=== PATIENT | female | born 1965 | race Caucasian/White ===

== ENCOUNTER 2016-03-08 09:41 | Emergency (ER) | payer OTHER ==
[~2016-03-08] VITALS: Ht 175.3 cm; Wt 80.9 kg
[~2016-03-08 09:41] MED LIST: ATEN50TA8 PO; FENO145T26 PO; LCTX PO
[2016-03-08 09:43] VITALS: TEMP 36.4; Ht 175.3 cm; Wt 80.9 kg
[2016-03-08] MEDS ORDERED: ONDANSETRON INJ 2 MG/ML 2 ML VIAL IV STA ×2 (09:48→11:42)
[2016-03-08] MEDS ORDERED: SITA100T3 PO (10:03)
[2016-03-08] MEDS ORDERED: GABA-113 PO (10:03)
[2016-03-08] MEDS ORDERED: BIOT1CAP3 PO (10:03)
[2016-03-08] MEDS ORDERED: LOSA1TAB PO (10:03)
[2016-03-08] MEDS ORDERED: DIPH-296 PO (10:03)
[2016-03-08] MEDS ORDERED: ASPI81TA28 PO (10:03)
[2016-03-08] MEDS ORDERED: FENO200C6 PO (10:03)
[2016-03-08 10:21] LABS: BASO % 0.1 %; BASO ABS # 0.01 K/uL (0-0.2); COMPLETE YES; EOS % 0.4 %; IG% 0.2 %; LYMPH % 6.5 %; MEAN PLATELET VOLUME 11.7 fL (7.4-10.4); MONO % 3.5 %; NEUT % 89.3 %; PLATELET COUNT 283 K/uL (130-400); RED BLOOD COUNT 5.23 M/uL (4.2-5.4); WHITE BLOOD COUNT 13.88 K/uL (4.8-10.8)
[2016-03-08 10:28] LABS: URINE APPEARANCE CLEAR (CLEAR); URINE BILIRUBIN NEG (NEG); URINE COLOR DK YELLOW; URINE EPITHELIAL CELL AUTO >30 /lpf (0-5); URINE NITRITE NEG (NEG); URINE PH 6.5 (4.5-7.5); URINE SPECIFIC GRAVITY 1.021 (1.000-1.030); UROBILINOGEN NEG (NEG); ZZUR CULT IF INDIC CLEAN CATCH YES
[2016-03-08 10:32] LABS: MANUAL MICROSCOPIC REQUIRED? NO; REVIEW REQ? YES
[2016-03-08 10:36] LABS: BUN/CREATININE RATIO 17.6 (10-20); CALCIUM 9.8 mg/dl (8.5-10.1); CREATININE 0.96 mg/dl (0.60-1.20); POTASSIUM 3.9 mmol/L (3.5-5.1)
[2016-03-08 10:39] LABS: ALB/GLOB RATIO 1.3 (0.9-2)
[2016-03-08 10:41] LABS: URINE MUCUS PRESENT (NONE PRSENT)
[2016-03-08] MEDS ORDERED: SODIUM CHLORIDE 0.9% 1000ML 1,000 ML IV ONE (10:45)
[2016-03-08] MEDS ORDERED: MoRPHine SULFATE 4 MG/ML 1 ML CARP\\VIAL IV ONE (10:45)
[2016-03-08] MEDS ORDERED: OPTIRAY 320 IV PRN (11:15)
[2016-03-08] MEDS ORDERED: HYDROmorphone INJ 1 MG/ML SYR IV STA (11:42)
--- NOTE | 2016-03-08 14:21 | DIAGNOSTIC IMAGING REPORT ---
CT ABD/PELVIS IV AND ORAL CONT CLINICAL HISTORY: Nausea, vomiting, left-sided abdominal pain COMPARISON STUDY: August 2010 TECHNIQUE: Following the IV administration of 119 mL of Optiray-320, CT scan of the abdomen and pelvis was performed from the lung bases to the proximal femurs. Images are reviewed in the axial, sagittal, and coronal planes. IV contrast was administered without complication. CT DOSE: 817.92 mGycm FINDINGS: Lower chest: There are bibasal atelectatic changes. Liver: There is mild hepatic steatosis. No gallbladder abnormalities are visualized. Gallbladder: Unremarkable. Spleen: The spleen is top normal in size measuring 11 cm. Pancreas: Unremarkable. Adrenal glands: Unremarkable. Kidneys: There is a 3 mm nonobstructing upper pole right renal calculus. There is a 5 mm nonobstructing mid pole left renal calculus. There is a 6 mm nonobstructing right renal calculus. There are tiny subcentimeter renal hypodensities likely representing cysts. The largest measures 7 mm. Bowel: There are no transition zones indicate bowel obstruction. The appendix appears normal. There are few scattered diverticula present. There are no acute peridiverticular inflammatory changes. Peritoneum: There is no intraperitoneal free air or abdominal ascites. Vasculature: The abdominal aorta is normal in course and caliber. Adenopathy: None. Pelvic viscera: There is a suspected nabothian gland cyst. Skeletal structures: No destructive osseous lesions are seen. IMPRESSION: 1. Bilateral nephrolithiasis 2. No evidence of bowel obstruction. No evidence of free air 3. Normal appendix 4. No evidence of acute diverticulitis Electronically signed by: Robert Nino M.D. 03/08/2016 2:19 PM Dictated Date/Time: 03/08/2016 2:14 PM
[2016-03-08] MEDS ORDERED: CEFTRIAXONE SOD INJ 1 GM ADDVIAL IV STA (14:40)
[2016-03-08 14:52] VITALS: BP 127/77; PULSE 100; O2SAT 95
[2016-03-08] MEDS ORDERED: SULF800T23 PO (15:21)
[2016-03-08] MEDS ORDERED: HYDR-5688 PO (15:21)
[2016-03-08] MEDS ORDERED: FLUC150T PO (15:21)
[2016-03-08] MEDS ORDERED: ONDA4TAB10 SL (15:21)
--- NOTE | 2016-03-09 14:01 | EMERGENCY ROOM VISIT NOTE ---
History First contact with patient: 10:28 Chief Complaint: VOMITING Stated Complaint: VOMITING Nursing Triage Summary: pt reports abd pain started last night with vomiting. no diarrhea History of Present Illness The patient is a 50 year old female who presents to the Emergency Room with complaints of abdominal pain and nausea without vomiting that began last evening. The patient has not had recent fever or diarrhea. She states the abdominal pain is cramping and without radiation. She is without chest pain, shortness of breath, or other symptoms. She has been eating, drinking, and otherwise using the bathroom as normal. No recent antibiotic usage. She does not have any known exposure to disease or recent travel history. She does have a history of kidney stones in the past, however this episode does not feel similar to that. She considers herself otherwise usually healthy. She rates her discomfort a 7/10. Review of Systems More than 10 systems were reviewed and otherwise negative with the exception of history of present illness. Past Medical/Surgical History Medical Problems: (1) Benign hypertension (2) Dehydration Family History No pertinent family history Social History Smoking Status: Never Smoker Housing Status: lives with family Current/Historical Medications Scheduled Aspirin (Aspirin Ec), 81 MG PO DAILY Diphenhydramine Hcl (Sleep) (Simply Sleep), 25 MG PO HS Fenofibrate (Tricor), 200 MG PO DAILY Fluconazole (Diflucan), 150 MG PO DIRECTED Gabapentin (Neurontin), 300 MG PO QAM Losartan Potassium (Cozaar), 25 MG PO DAILY Ondasetron Odt (Zofran Odt), 4 MG SL Q6H Sitagliptin Phosphate (Januvia), 100 MG PO DAILY Sulfa/Trimethoprim (Bactrim Ds 800MG/160MG), 1 TAB PO BID Scheduled PRN Hydrocodone/Acetaminophen 5MG/325MG (University 5MG/325MG), 1 TABLET PO Q6 PRN for Pain Miscellaneous Medications Biotin (Biotin), 5,000 MCG PO Allergies Coded Allergies: Lisinopril (Unverified Allergy, Unknown, sick, 03/08/16) Physical Exam Vital Signs Date Time Temp Pulse Resp B/P Pulse Ox O2 Delivery O2 Flow Rate FiO2 03/08/16 14:52 100 20 127/77 95 03/08/16 13:19 99 16 128/79 98 03/08/16 11:56 102 20 144/87 97 03/08/16 09:43 36.4 108 18 123/87 94 Room Air Pain Rating (0-10): 5.0 Physical Exam VITALS: Vitals are noted on the nurse's note and reviewed by myself. Vital signs stable. GENERAL: Well-developed, well-nourished, white female who appears moderately uncomfortable on examination. Patient is cooperative with the examination. HEAD: Normocephalic atraumatic. NECK: Supple without nuchal rigidity. No lymphadenopathy. No thyromegaly. Cervical spine is nontender. HEART: Regular rate and rhythm without murmurs gallops or rubs. LUNGS: Clear to auscultation bilaterally without wheezes, rales or rhonchi. No retractions or accessory muscle use. ABDOMEN: Positive normal bowel sounds x 4. Soft with both epigastric and left- sided abdominal tenderness. No lower or right sided tenderness. No rebound or guarding. No CVA tenderness. MUSCULOSKELETAL: No muscle atrophy, erythema, or edema noted. Full range of motion without joint tenderness in all extremities. Medical Decision & Procedures ER Provider Diagnostic Interpretation: CT ABD/PELVIS IV AND ORAL CONT CLINICAL HISTORY: Nausea, vomiting, left-sided abdominal pain COMPARISON STUDY: August 2010 TECHNIQUE: Following the IV administration of 119 mL of Optiray-320, CT scan of the abdomen and pelvis was performed from the lung bases to the proximal femurs. Images are reviewed in the axial, sagittal, and coronal planes. IV contrast was administered without complication. CT DOSE: 817.92 mGycm FINDINGS: Lower chest: There are bibasal atelectatic changes. Liver: There is mild hepatic steatosis. No gallbladder abnormalities are visualized. Gallbladder: Unremarkable. Spleen: The spleen is top normal in size measuring 11 cm. Pancreas: Unremarkable. Adrenal glands: Unremarkable. Kidneys: There is a 3 mm nonobstructing upper pole right renal calculus. There is a 5 mm nonobstructing mid pole left renal calculus. There is a 6 mm nonobstructing right renal calculus. There are tiny subcentimeter renal hypodensities likely representing cysts. The largest measures 7 mm. Bowel: There are no transition zones indicate bowel obstruction. The appendix appears normal. There are few scattered diverticula present. There are no acute peridiverticular inflammatory changes. Peritoneum: There is no intraperitoneal free air or abdominal ascites. Vasculature: The abdominal aorta is normal in course and caliber. Adenopathy: None. Pelvic viscera: There is a suspected nabothian gland cyst. Skeletal structures: No destructive osseous lesions are seen. IMPRESSION: 1. Bilateral nephrolithiasis 2. No evidence of bowel obstruction. No evidence of free air 3. Normal appendix 4. No evidence of acute diverticulitis Laboratory Results 03/08/16 10:00 Red Blood Count 5.23, Mean Corpuscular Volume 86.0, Mean Corpuscular Hemoglobin 31.0, Mean Corpuscular Hemoglobin Concent 36.0, Mean Platelet Volume 11.7, Neutrophils (%) (Auto) 89.3, Lymphocytes (%) (Auto) 6.5, Monocytes (%) (Auto) 3.5, Eosinophils (%) (Auto) 0.4, Basophils (%) (Auto) 0.1, Neutrophils # (Auto) 12.40, Lymphocytes # (Auto) 0.90, Monocytes # (Auto) 0.49, Eosinophils # (Auto) 0.05, Basophils # (Auto) 0.01 03/08/16 10:00 Test 03/08/16 10:00 White Blood Count 13.88 K/uL (4.8-10.8) Red Blood Count 5.23 M/uL (4.2-5.4) Hemoglobin 16.2 g/dL (12.0-16.0) Hematocrit 45.0 % (37-47) Mean Corpuscular Volume 86.0 fL (80-100) Mean Corpuscular Hemoglobin 31.0 pg (25-34) Mean Corpuscular Hemoglobin Concent 36.0 g/dl (32-36) Platelet Count 283 K/uL (130-400) Mean Platelet Volume 11.7 fL (7.4-10.4) Neutrophils (%) (Auto) 89.3 % Lymphocytes (%) (Auto) 6.5 % Monocytes (%) (Auto) 3.5 % Eosinophils (%) (Auto) 0.4 % Basophils (%) (Auto) 0.1 % Neutrophils # (Auto) 12.40 K/uL (1.4-6.5) Lymphocytes # (Auto) 0.90 K/uL (1.2-3.4) Monocytes # (Auto) 0.49 K/uL (0.11-0.59) Eosinophils # (Auto) 0.05 K/uL (0-0.5) Basophils # (Auto) 0.01 K/uL (0-0.2) RDW Standard Deviation 41.5 fL (36.4-46.3) RDW Coefficient of Variation 13.1 % (11.5-14.5) Immature Granulocyte % (Auto) 0.2 % Immature Granulocyte # (Auto) 0.03 K/uL (0.00-0.02) Urine Color DK YELLOW Urine Appearance CLEAR (CLEAR) Urine pH 6.5 (4.5-7.5) Urine Specific [place] 1.021 (1.000-1.030) Urine Protein NEG (NEG) Urine Glucose (UA) NEG (NEG) Urine Ketones TRACE (NEG) Urine Occult Blood NEG (NEG) Urine Nitrite NEG (NEG) Urine Bilirubin NEG (NEG) Urine Urobilinogen NEG (NEG) Urine Leukocyte Esterase MODERATE (NEG) Urine WBC (Auto) 10-30 /hpf (0-5) Urine RBC (Auto) 5-10 /hpf (0-4) Urine Hyaline Casts (Auto) 1-5 /lpf (0-5) Urine Epithelial Cells (Auto) >30 /lpf (0-5) Urine Bacteria (Auto) 1+ (NEG) Urine Renal Epithelial Cells /lpf (0-5) Urine Mucus PRESENT (NONE PRSENT) Anion Gap 15.0 mmol/L (3-11) Est Creatinine Clear Calc Drug Dose 79.8 ml/min Estimated GFR () 79.9 Estimated GFR (Non- 69.0 BUN/Creatinine Ratio 17.6 (10-20) Calcium Level 9.8 mg/dl (8.5-10.1) Total Bilirubin 0.8 mg/dl (0.2-1) Aspartate Amino Transf (AST/SGOT) 14 U/L (15-37) Alanine Aminotransferase (ALT/SGPT) 24 U/L (12-78) Alkaline Phosphatase 73 U/L (45-117) Total Protein 7.7 gm/dl (6.4-8.2) Albumin 4.4 gm/dl (3.4-5.0) Globulin 3.3 gm/dl (2.5-4.0) Albumin/Globulin Ratio 1.3 (0.9-2) Lipase 87 U/L (73-393) Date/Time Source Procedure Growth Status 1/11/17 10:00 Urine , Clean Catch Urine Culture - Final MORE THAN THREE TYPES OF ORGANISMS NE... Complete Medications Administered Medications (Trade) Dose Ordered Sig/Khari Route Start Time Stop Time Status Last Admin Dose Admin Ondansetron HCl 4 mg 4 mg NOW STAT IV 03/08/16 09:48 03/08/16 09:49 DC 03/08/16 09:58 4 MG Sodium Chloride (Nss 1000ml) 1,000 ml @ 999 mls/hr Q1H1M ONCE IV 03/08/16 10:45 03/08/16 11:45 DC 03/08/16 10:45 999 MLS/HR Morphine Sulfate (MoRPHine SULFATE INJ) 4 mg NOW ONCE IV 03/08/16 10:45 03/08/16 10:46 DC 03/08/16 10:52 4 MG Ondansetron HCl (Zofran Inj) 4 mg NOW STAT IV 03/08/16 11:42 03/08/16 11:43 DC 03/08/16 11:54 4 MG Hydromorphone HCl (Dilaudid Inj) 1 mg NOW STAT IV 03/08/16 11:42 03/08/16 11:43 DC 03/08/16 11:54 1 MG Ceftriaxone Sodium (Rocephin Inj) 1 gm NOW STAT IV 03/08/16 14:40 03/08/16 14:41 DC 03/08/16 14:53 1 GM ED Course Physical exam and history were performed. Nursing notes and EMR were reviewed. Patient appears to have abdominal pain with nausea for the past one day. On examination the patient does have abdominal tenderness primarily in the epigastrium and left side abdomen. She does appear uncomfortable. IV access was established and labs were obtained. The patient was hydrated and medicated as above. Because of her exam and symptoms a CT scan of the abdomen and pelvis was performed. The patient's blood work is as above and was reviewed. She does have an elevated white blood cell count of nearly 14,000. She does not have a significant anemia or gross electrolyte imbalance. Lipase and transaminases are nondiagnostic. The patient's urinalysis is concerning for UTI, although the patient does not have urinary tract infection symptoms or suprapubic tenderness. CT scan with contrast was performed and is without evidence of an acute surgical abdomen. No abscess or other significant findings are noted on CT scan. Clinically the patient's discomfort was much improved after hydration medication here in the department. Again, her urine is highly suspicious for infection, and she was given IV Rocephin here in the department. I did discuss the case with my attending physician, Dr. Sutton, and we will discharge the patient with a course of Bactrim. Regarding the patient's pain and nausea I will also give her very short course of Vicodin and Zofran. The patient evidently does have a history of yeast infections with antibiotic usage, and will be given Diflucan. She is to follow with her primary care physician on a short interval for recheck. She was otherwise invited back to the ER with any new, worsening, or concerning symptoms. She was pleased with plan of care and voiced understanding. The chart was completed utilizing [employer] Speech Voice Recognition Software. Grammatical errors, random word insertions, pronoun errors, and incomplete sentences are an occasional consequence of this system due to software limitations, ambient noise, and hardware issues. Any formal questions or concerns about the content, text, or information contained within the body of this dictation should be directly addressed to the provider for clarification. . Medical Decision Differential diagnosis: Etiologies such as appendicitis, diverticulitis, PUD, biliary pathology, UTI, pancreatitis, obstruction, mesenteric ischemia, aortic pathology, infections, inflammatory bowel disease, renal colic, as well as others were entertained. Impression Primary Impression: Urinary tract infection Additional Impression: Vomiting Departure Information Dispostion Home / Self-Care Condition FAIR Prescriptions Fluconazole (DIFLUCAN) 150 Mg Tab 150 MG PO DIRECTED, #1 TAB 1 Refill Take one dose. May repeat in 7 days if needed. Prov: Jagdeep Cabral PA-C 03/08/16 Hydrocodone/Acetaminophen 5MG/325MG (University 5MG/325MG) Tab 1 TABLET PO Q6 Y for Pain, #12 TAB For Initial Treatment Prov: Jagdeep Cabral PA-C 03/08/16 Ondasetron Odt (ZOFRAN ODT) 4 Mg Tab 4 MG SL Q6H for Nausea, #12 TAB Prov: Jagdeep Cabral PA-C 03/08/16 Sulfa/Trimethoprim (Bactrim Ds 800MG/160MG) Tab 1 TAB PO BID for 10 Days, #20 TAB Prov: Jagdeep Cabral PA-C 03/08/16 Forms HOME CARE DOCUMENTATION FORM, IMPORTANT VISIT INFORMATION Patient Instructions A Signature Page, My [facility] Additional Instructions You were seen and evaluated today on an emergency basis only. This is not a substitute for, or an effort to provide, complete comprehensive medical care. It is not possible to recognize and treat all injuries or illnesses in a single emergency department visit. For this reason it is recommended that you followup with your primary care physician in the next 2-3 days for recheck of your condition. For baseline pain relief you may alternate ibuprofen and acetaminophen every 4 hours for pain control. Take 600 mg ibuprofen (Advil) and then 4 hours later take 1000 mg acetaminophen (Tylenol). Do not take more than 3000 mg acetaminophen in a single day. University (hydrocodone/acetaminophen) 5/325 mg every 6 hours as needed for worsening breakthrough pain. Do not drink or drive on [place]. This medication will likely make you tired. Do not take University and Tylenol at the same time as both contain acetaminophen. University may cause constipation. You may wish to take an [id number] stool softener like Colace if this occurs. Zofran 1 tablet every 6 hrs as needed for nausea. Trimethoprim-Sulfamethoxazole(Bactrim DS): Take one pill twice daily for 10 days for your skin infection. All antibiotics can cause diarrhea. If this occurs and you feel worse or it does not resolve in 1-2 days follow up with your doctor or return to the Emergency Department as this could be signs of serious underlying problems. Any medication can cause an allergic reaction, stop the pills immediately and return to the ER for rash, hives, breathing difficulties, or swelling. Take Diflucan 150 mg 1 dose if needed. You may repeat this in 7 days. Drink plenty of fluids and remain well hydrated. You are welcome to return to the emergency department anytime with new, worsening, or concerning symptoms. Problem Qualifiers
== END 2016-03-08 15:25 | disposition home or self-care (01) ==
LOC: C.EDB 09:42 → C.EDC 15:25
DX: N39.0 Urinary tract infection, site not specified (principal); R11.2 Nausea with vomiting, unspecified; Z87.442 Personal history of urinary calculi; I10 Essential (primary) hypertension; Z79.82 Long term (current) use of aspirin; Z79.899 Other long term (current) drug therapy

== ENCOUNTER → 2017-02-06 | Outpatient (CLI) | payer OTHER ==
[~2017-02-06] MED LIST changes: +ASPI81TA28 PO; -ATEN50TA8 PO; +BIOT1CAP3 PO; +DIPH-296 PO; -FENO145T26 PO; +FENO200C6 PO; +FLUC150T PO; +GABA-113 PO; -LCTX PO; +LOSA1TAB PO; +SITA100T3 PO
--- NOTE | 2017-02-07 15:59 | MAMMOGRAPHY REPORT ---
BILATERAL DIGITAL SCREENING MAMMOGRAM TOMOSYNTHESIS WITH CAD: 02/06/2017 CLINICAL HISTORY: Routine screening examination. TECHNIQUE: Breast tomosynthesis in addition to standard 2D mammography was performed. Current study was also evaluated with a Computer Aided Detection (CAD) system. COMPARISON: Comparison is made to exams dated: 05/14/2015 mammogram, 03/25/2014 ultrasound, 03/25/2014 mammogram, 08/15/2013 mammogram, 08/12/2013 mammogram, and 08/01/2012 mammogram - [facility] enter. BREAST COMPOSITION: There are scattered areas of fibroglandular density in both breasts. FINDINGS: There are stable benign round and rim calcifications in the breasts. No suspicious mass, a rchitectural distortion or cluster of suspicious microcalcifications is seen. IMPRESSION: ACR BI-RADS CATEGORY 1: NEGATIVE There is no mammographic evidence of malignancy. A 1 year screening mammogram is recommended. The pa tient will receive written notification of the results. Approximately 10% of breast cancers are not detected with mammography. A negative mammographic report should not delay biopsy if a clinically suggestive mass is present. Kezia Clements M.D. ay/:02/06/2017 15:58:35 Able Seaman: Anne Marie COUCH(Sophie)(Heather), [facility] letter sent: Normal 1/2 BI-RADS Code: ACR BI-RADS Category 1: Negative
== END | disposition home or self-care (01) ==
LOC: C.MAMM 11:36
PROVIDERS: ATTEND Family Medicine
DX: Z12.31 Encounter for screening mammogram for malignant neoplasm of breast (principal)

== ENCOUNTER → 2017-04-30 | Outpatient (CLI) | payer OTHER ==
[~2017-04-30] MED LIST changes: +BUPR-79 PO
[2017-04-30 14:55] LABS: BLOOD UREA NITROGEN 15 mg/dl (7-18); CREATININE 0.88 mg/dl (0.60-1.20)
== END | disposition home or self-care (01) ==
LOC: C.LABBC 11:36
PROVIDERS: ATTEND Physician Assistant Medical
DX: Z01.812 Encounter for preprocedural laboratory examination (principal); Z01.818 Encounter for other preprocedural examination

== ENCOUNTER → 2017-05-02 | Outpatient (CLI) | payer OTHER ==
[~2017-05-02] MED LIST changes: +GADAVIST IV PRN
--- NOTE | 2017-05-02 14:47 | DIAGNOSTIC IMAGING REPORT ---
MRI OF THE BRAIN WITHOUT AND WITH IV CONTRAST CLINICAL HISTORY: Increasing migraines. Atypical facial pain COMPARISON STUDY: No previous studies for comparison. TECHNIQUE: MRI of the brain was performed from the vertex to the skull base utilizing various T1 and T2 weighted sequences. Following the IV administration of 8 mL of Gadavist contrast, additional enhanced images were obtained. FINDINGS: Sagittal T1, axial diffusion, proton density and T2 weighted axial, coronal FLAIR, and pre and post axial T1-weighted images were acquired. These were supplemented with post gadolinium coronal T1 weighted images. No intra or extra-axial mass lesions are visualized. Axial diffusion-weighted images reveal no evidence of acute or subacute infarction. There is no evidence of ventricular dilatation. Proton density T2-weighted and FLAIR images reveal a nonspecific 2 mm focus of increased FLAIR signal within the left frontal white matter There are no abnormal flow voids. There is no evidence of pathologic enhancement. IMPRESSION: 1. No acute intracranial findings 2. No evidence of intracranial mass 3. No evidence of acute or subacute infarction 4. 2 mm focus of increased FLAIR signal in the left frontal white matter, likely secondary to headaches or small vessel perivascular change. Electronically signed by: Robert Nnio M.D. 05/02/2017 2:46 PM Dictated Date/Time: 05/02/2017 2:42 PM
== END | disposition home or self-care (01) ==
LOC: C.MRIBC 14:00
PROVIDERS: ATTEND Physician Assistant
DX: R51 Headache (principal)

== ENCOUNTER 2017-10-06 12:56 | Emergency (ER) | payer OTHER ==
[~2017-10-06] VITALS: Ht 175.3 cm; Wt 80.7 kg
[~2017-10-06 12:56] MED LIST changes: -GADAVIST IV PRN
[2017-10-06 12:58] VITALS: TEMP 36.7; Ht 175.3 cm; Wt 80.7 kg
[2017-10-06] MEDS ORDERED: KETOROLAC TROMETHAMINE 30 MG/ML VIAL IV STA (13:56)
[2017-10-06] MEDS ORDERED: LINA1TAB PO (13:56)
[2017-10-06] MEDS ORDERED: SODIUM CHLORIDE 0.9% 1000ML 1,000 ML IV STA ×2 (13:56)
[2017-10-06] MEDS ORDERED: LFB/200 PO (13:56)
--- NOTE | 2017-10-06 14:20 | EMERGENCY ROOM VISIT NOTE ---
ED Visit Note First contact with patient: 13:38 CHIEF COMPLAINT: Flulike symptoms HISTORY OF PRESENTING ILLNESS: This is a 52-year-old female with past medical history significant for type 2 diabetes, hypertension, and migraines, who presents to the emergency department with complaint of flulike symptoms for the past 3 days. She states that she started with shaking chills, muscle pain and joint pain. She is unsure if she has had a fever with this because she did not have a thermometer with her, but she states she felt feverish. She has also been having associated headaches, dry cough, nausea, decreased appetite, and feeling very thirsty in spite of drinking lots of water. She has been taking Tylenol which does seem to help her body aches and headaches, but only seems to last for a few hours and then her symptoms come back. She currently rates her body ache pain as 5/10. She feels like she is dehydrated. She states that she was feeling constipated for the past few days, but has developed diarrhea since arriving to the ED, has gone 3 times and did provide a stool sample today. She also developed some right-sided flank pain today that she states feels similar to when she has had kidney stones in the past. 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 In the past few months she has been to several countries in [place] as well as [place], she said most recently she was in the [place] about 3 weeks ago. She states she has not always taken malaria prophylaxis and has received mosquito bites, she is concerned for possible malaria and wants to be tested for this today. She is also concerned for intestinal parasites. She denies any history of previous diagnosis of non-endemic infectious diseases. She also reports that she spends significant time outdoors, she is unsure of any tick bites, but states she has frequently been in areas with ticks. She denies any vision changes, neck pain or stiffness, chest pain, shortness of breath, REVIEW OF SYSTEMS: A complete 10 point review of systems was reviewed with the patient with pertinent positives and negatives as per history of present illness. All else were negative. PAST MEDICAL HISTORY: Reviewed in chart, see problem list below. SOCIAL HISTORY: Lives at home. She denies tobacco use. She is a travel attendants. ALLERGIES: Reviewed in chart, see below. PHYSICAL EXAM: CONSTITUTIONAL: Pleasant and cooperative. No acute distress. Moderately dehydrated. Otherwise well appearing and well nourished. HEENT: Normocephalic, atraumatic. Pupils equal, round and reactive to light, EOMI. TMs normal. Pharynx normal. Dry mucous membranes. NECK: Supple, full active range of motion without discomfort. No nuchal rigidity or meningismus, negative Brudzinski and Kernig's. No cervical adenopathy. RESPIRATORY: Diminished in the bases, otherwise clear to auscultation bilaterally with no wheezing, crackles, rhonchi or stridor. Equal expansion bilaterally. CARDIOVASCULAR: Tachycardic. Regular rhythm with no murmurs, rubs or gallops. Normal peripheral perfusion. No edema. GASTROINTESTINAL: Tenderness to palpation along the right flank. Abdomen is soft and nondistended. No palpable masses or HSM. Bowel sounds present in all quadrants. Positive CVA tenderness on the right, no CVA tenderness on the left. MUSCULOSKELETAL: Full range of motion of all joints, which does elicit some discomfort. No joint effusions, swelling or erythema appreciated. INTEGUMENTARY: No rash or other significant dermatologic conditions noted. NEUROLOGIC: Alert and oriented X 4 with normal affect. Cranial nerves II-XII grossly intact, no facial droop. No pronator drift. No focal neurologic deficits noted. Normal strength and sensation in all 4 extremities. Normal speech. Normal gait observed. Negative Romberg. ED COURSE AND MEDICAL DECISION MAKING: CC: Patient presenting with complaint of flulike symptoms DIFFERENTIAL DIAGNOSIS: Includes, but not limited to viral URI, bronchitis, pneumonia, gastroenteritis, food poisoning, UTI, pyelonephritis, ureteral stone , dehydration, electrolyte abnormality, unusual infectious etiologies including tickborne illness, malaria, intestinal parasites, among others. INTERPRETATION OF LABS: No leukocytosis, no anemia, normal platelets, significant hyperglycemia with hyponatremia and hypochloremia, mildly elevated serum ketones, but anion gap is closed suggesting no acidosis, no other significant electrolyte abnormalities, normal renal function, normal liver enzymes and lipase. Coagulation factors within normal limits. TSH within normal limits. Lyme testing negative. Peripheral smear preliminary results negative for malaria. UA notable for hematuria and 3+ bacteria, could represent contaminant, but suspicious for infection, urine culture pending. Urine negative. Stool studies pending. IMAGING: TWO VIEW CHEST CLINICAL HISTORY: Cough. FINDINGS: PA and lateral chest radiographs are obtained. No prior studies are available for comparison at the time of dictation. The cardiomediastinal silhouette is unremarkable. There is minimal bibasilar atelectasis. The lungs and pleural spaces are otherwise clear. There is no pneumothorax. The skeletal structures are osteopenic. The bony thorax appears intact. IMPRESSION: No active disease in the chest. ----- CT SCAN OF THE ABDOMEN AND PELVIS WITHOUT IV CONTRAST CLINICAL HISTORY: Right flank pain. Fever. Constipation. COMPARISON STUDY: Abdominal CT dated 03/08/2016. TECHNIQUE: CT scan of the abdomen and pelvis is performed from the lung bases to the proximal femora. Images are reviewed in the axial, sagittal, and coronal planes. IV contrast was not administered for this examination. A dose lowering technique was utilized adhering to the principles of ALARA. CT DOSE: 581.82 mGy.cm FINDINGS: Lung bases: The heart is normal in size and without pericardial effusion. The lung bases are clear noting dependent atelectasis. Liver: The unenhanced liver is enlarged, measuring 24 cm in length. The liver demonstrates diffusely diminished attenuation consistent with hepatic steatosis. Fatty sparing is noted adjacent to gallbladder fossa. There is no intrahepatic biliary ductal dilatation. Gallbladder: Unremarkable. Spleen: Normal in size and attenuation. Pancreas: Unremarkable. Adrenal glands: Unremarkable. Kidneys: The unenhanced kidneys are normal in size. The right kidney appears edematous and there is significant right-sided perinephric stranding as was trace perinephric fluid. There is minimal right-sided hydronephrosis. The right ureter is normal in caliber, and no ureteral stone is identified. There are at least 3 nonobstructing right renal calculi measuring up to 8 mm. A 6 cm nonobstructing calculus is noted in the left kidney. There is no left-sided hydronephrosis. An 8 mm exophytic cyst is noted on the left. Abdominal vasculature: The abdominal aorta is normal in course and caliber noting mild to moderate atherosclerotic calcification. Bowel: The small bowel and colon are normal in course and caliber. The appendix is well-visualized and normal. Peritoneum: There is no intraperitoneal free air or abdominal ascites. Lymphadenopathy: None. Pelvic viscera: The bladder is normal as visualized. A calcified fibroid is noted in the uterine fundus. No adnexal lesion is seen. Skeletal structures: No lytic or blastic lesions are seen. IMPRESSION: 1. The right kidney appears edematous and there is significant right-sided perinephric stranding as well as trace perinephric fluid. 2. There is minimal right-sided hydronephrosis. The right ureter is normal in caliber and no ureteral stone is seen. These findings may represent the sequelae of a recently passed kidney stone. Pyelonephritis could also have this appearance. Correlation with clinical findings and urinalysis will be required. 3. Nonobstructing calculi are seen in both kidneys. 4. Hepatomegaly and severe hepatic steatosis. 5. A calcified fibroid is noted. 6. Additional findings as above. MEDICATION RECONCILIATION: I attest that I have personally reviewed the patient 's current medication list. INITIAL VITAL SIGNS REVIEW: I reviewed the patient's initial vital signs and interpret them as follows: T: Afebrile; BP: Normotensive; HR: Tachycardic; RR : Within normal limits; Pulse Ox: Within normal limits on room air. Blood pressure screening: The patient was found to have normal blood pressure on screening and does not require follow-up for repeat blood pressure check. SUMMARY: Patient was evaluated at bedside, history and physical exam performed. Patient is alert and oriented, in no acute distress, resting calmly in the stretcher. She appears to be moderately dehydrated on exam is noted to be tachycardic. She is afebrile. She does have right-sided flank and abdominal pain on exam, no acute abdomen. I discussed at length the patient's concerns, she is particularly concerned about unusual infectious etiology due to her frequent international travel. Utilizing shared decision making, tests were ordered for malaria and intestinal ova and parasite, as well as Lyme testing. Orders were placed at bedside for labs, UA and urine , IV fluids for hydration, IV Toradol for pain, chest x-ray, CT abdomen/pelvis noncontrast to evaluate for kidney stone. Notable hyperglycemia, however no evidence of acidosis or DKA, and blood glucose was improved after IV fluids. Patient discussed with Dr. Tinoco, who agrees with my assessment and plan. Labs and imaging reviewed as above. No evidence of ureteral stone on CT, but does appear consistent with a right pyelonephritis, which correlates with the UA. 1 g IV Rocephin ordered. Stool studies are pending. Peripheral smear is preliminarily negative for malaria, Lyme test negative. Patient reassessed multiple times throughout ED stay, she has remained stable, tachycardia downtrending with IV fluids, and she is feeling overall much better after Toradol and IV fluids. Patient was updated on all results and plan for discharge, she was encouraged to follow closely with her PCP. Rx for ciprofloxacin was sent to the pharmacy for treatment of her pyelonephritis, first dose given in the ED. She was educated regarding this medication. Patient was also given strict return precautions should her symptoms worsen, she verbalized understanding. Patient was discharged home in stable condition and ambulatory. (Katerin Tran, SHONA) First contact with patient: 13:38 (Jefe Tinoco M.D.) Problem List Medical Problems: (1) Benign hypertension Status: Chronic (2) Dehydration Status: Resolved (Jefe Tinoco M.D.) Current/Historical Medications Scheduled Aspirin (Aspirin Ec), 81 MG PO DAILY Bupropion (Wellbutrin Sr), 150 MG PO DAILY Ciprofloxacin HCl (Ciprofloxacin), 1 TAB PO BID Diphenhydramine Hcl (Sleep) (Simply Sleep), 25 MG PO HS Fenofibrate Micronized (Tricor), 200 MG PO DAILY Fluconazole (Diflucan), 150 MG PO DIRECTED Gabapentin (Neurontin), 600 MG PO DAILY Linagliptin (Tradjenta), Unknown Dose PO DAILY Losartan Potassium (Cozaar), 25 MG PO DAILY Miscellaneous Medications Biotin (Biotin), 5,000 MCG PO Allergies Coded Allergies: Lisinopril (Unverified Allergy, Unknown, sick, 04/06/17) Vital Signs Date Time Temp Pulse Resp B/P (MAP) Pulse Ox O2 Delivery O2 Flow Rate FiO2 10/06/17 18:24 97 18 122/79 98 10/06/17 16:50 103 18 138/96 97 Room Air 10/06/17 14:19 100 16 114/80 97 Room Air 10/06/17 12:58 36.7 116 20 126/81 97 Room Air (Jefe Tinoco M.D.) Laboratory Results 10/06/17 14:20 Red Blood Count 4.23, Mean Corpuscular Volume 85.8, Mean Corpuscular Hemoglobin 30.7, Mean Corpuscular Hemoglobin Concent 35.8, Mean Platelet Volume 11.7, Neutrophils (%) (Auto) 72.1, Lymphocytes (%) (Auto) 15.3, Monocytes (%) (Auto) 11.6, Eosinophils (%) (Auto) 0.5, Basophils (%) (Auto) 0.2, Neutrophils # (Auto ) 7.43, Lymphocytes # (Auto) 1.57, Monocytes # (Auto) 1.19, Eosinophils # (Auto ) 0.05, Basophils # (Auto) 0.02 10/06/17 14:20 Test 10/06/17 13:25 10/06/17 14:03 10/06/17 14:20 10/06/17 17:57 Urine Color YELLOW Urine Appearance CLEAR (CLEAR) Urine pH 6.0 (4.5-7.5) Urine Specific [place] 1.034 (1.000-1.030) Urine Protein 1+ (NEG) Urine Glucose (UA) 3+ (NEG) Urine Ketones 1+ (NEG) Urine Occult Blood 2+ (NEG) Urine Nitrite NEG (NEG) Urine Bilirubin NEG (NEG) Urine Urobilinogen NEG (NEG) Urine Leukocyte Esterase NEG (NEG) Urine WBC (Auto) 5-10 /hpf (0-5) Urine RBC (Auto) >30 /hpf (0-4) Urine Hyaline Casts (Auto) 0 /lpf (0-5) Urine Epithelial Cells (Auto) >30 /lpf (0-5) Urine Bacteria (Auto) 3+ (NEG) Urine Test NEG (NEG) White Blood Count 10.29 K/uL (4.8-10.8) Red Blood Count 4.23 M/uL (4.2-5.4) Hemoglobin 13.0 g/dL (12.0-16.0) Hematocrit 36.3 % (37-47) Mean Corpuscular Volume 85.8 fL (80-100) Mean Corpuscular Hemoglobin 30.7 pg (25-34) Mean Corpuscular Hemoglobin Concent 35.8 g/dl (32-36) Platelet Count 183 K/uL (130-400) Mean Platelet Volume 11.7 fL (7.4-10.4) Neutrophils (%) (Auto) 72.1 % Lymphocytes (%) (Auto) 15.3 % Monocytes (%) (Auto) 11.6 % Eosinophils (%) (Auto) 0.5 % Basophils (%) (Auto) 0.2 % Neutrophils # (Auto) 7.43 K/uL (1.4-6.5) Lymphocytes # (Auto) 1.57 K/uL (1.2-3.4) Monocytes # (Auto) 1.19 K/uL (0.11-0.59) Eosinophils # (Auto) 0.05 K/uL (0-0.5) Basophils # (Auto) 0.02 K/uL (0-0.2) RDW Standard Deviation 40.3 fL (36.4-46.3) RDW Coefficient of Variation 12.7 % (11.5-14.5) Immature Granulocyte % (Auto) 0.3 % Immature Granulocyte # (Auto) 0.03 K/uL (0.00-0.02) Prothrombin Time 11.4 SECONDS (9.0-12.0) Prothromb Time International Ratio 1.1 (0.9-1.1) Activated Partial Thromboplast Time 33.4 SECONDS (21.0-31.0) Partial Thromboplastin Ratio 1.3 Anion Gap 9.0 mmol/L (3-11) Est Creatinine Clear Calc Drug Dose 75.6 ml/min Estimated GFR () 75.9 Estimated GFR (Non- 65.5 BUN/Creatinine Ratio 15.9 (10-20) Calcium Level 8.7 mg/dl (8.5-10.1) Total Bilirubin 0.6 mg/dl (0.2-1) Aspartate Amino Transf (AST/SGOT) 9 U/L (15-37) Alanine Aminotransferase (ALT/SGPT) 15 U/L (12-78) Alkaline Phosphatase 77 U/L (45-117) Total Protein 7.3 gm/dl (6.4-8.2) Albumin 2.8 gm/dl (3.4-5.0) Globulin 4.5 gm/dl (2.5-4.0) Albumin/Globulin Ratio 0.6 (0.9-2) Lipase 67 U/L (73-393) Beta-Hydroxybutyric Acid 11.72 mg/dL (0.2-2.81) Thyroid Stimulating Hormone (TSH) 0.844 uIu/ml (0.300-4.500) Lyme Disease IgG Antibody NEG (NEG) Lyme Disease IgM Antibody NEG (NEG) Bedside Glucose 268 mg/dl (70-90) Date/Time Source Procedure Growth Status 10/06/17 14:20 Blood Parasitology Test - Final Complete (Jefe Tinoco M.D.) Medications Administered Medications (Trade) Dose Ordered Sig/Khari Route Start Time Stop Time Status Last Admin Dose Admin Sodium Chloride 1,000 ml @ 999 mls/hr Q1H1M STAT IV 10/06/17 13:56 10/06/17 14:56 DC 10/06/17 14:16 999 MLS/HR Ketorolac Tromethamine (Toradol Inj) 15 mg NOW STAT IV 10/06/17 13:56 10/06/17 14:02 DC 10/06/17 14:16 15 MG Sodium Chloride 1,000 ml @ 999 mls/hr Q1H1M STAT IV 10/06/17 13:56 10/06/17 14:56 DC 10/06/17 14:18 999 MLS/HR Ceftriaxone Sodium (Rocephin Inj) 1 gm NOW STAT IV 10/06/17 16:39 10/06/17 16:40 DC 10/06/17 16:47 1 GM Ciprofloxacin (Cipro Tab) 500 mg NOW STAT PO 10/06/17 17:47 10/06/17 17:48 DC 10/06/17 17:57 500 MG (Jefe Tinoco M.D.) Departure Information Impression Primary Impression: Acute pyelonephritis Additional Impressions: Dehydration with hyponatremia Hyperglycemia Dispostion Home / Self-Care Condition GOOD Prescriptions Fluconazole (DIFLUCAN) 150 Mg Tab 150 MG PO DIRECTED for for yeast infection, #1 TAB Prov: Katerin Tran CRNP 10/06/17 Ciprofloxacin HCl (Ciprofloxacin) 500 Mg Tab 1 TAB PO BID for 10 Days, #19 TABS Prov: Katerin Tran CRNP 10/06/17 Referrals Andrew Angela M.D. (PCP) Patient Instructions ED Dehydration, ED Hyperglycemia Diabetic, ED Kidney Infec Female, My [facility] Additional Instructions You have been treated in the Emergency Department for your flulike symptoms and dehydration. You were found to have a Urinary Tract Infection (UTI) and kidney infection (pyelonephritis). You have been prescribed ciprofloxacin to be taken twice a day for 10 days. This is an antibiotic. All antibiotics have the potential to cause diarrhea, you may take daily probiotic or eat yogurt every day to help prevent this. Stop this medication and contact a medical provider if you were to develop any significant adverse side effects including: wheezing, shortness of breath, passing out, vomiting, or a diffuse rash. Always take antibiotics as directed and COMPLETE the ENTIRE course regardless of the improvement of your symptoms. For pain control, you can use the following [id number] medicines (if >12 yo): - Regular strength (325mg/tab) Tylenol (acetaminophen) 2 tabs every 6 hours as needed. Do not exceed 10 tablets in a 24 hour period. Avoid taking more than 3000 mg of Tylenol per day. This includes any other sources of acetaminophen you may take on a regular basis. - Regular strength (200 mg/tab) Advil (ibuprofen) 3 tabs every 6 hours as needed. Do not exceed a dose of 2400 mg per day. - For best results, alternate between the Tylenol and ibuprofen every 3-4 hours. You may also use a heating pad to your right side to help with discomfort and pain. Drink plenty of water and stay well hydrated. You were found to have an elevated blood sugar on labs today. Please continue to monitor your blood sugar levels and follow-up with your primary care provider regarding your diabetes management. Stool studies were sent to the lab to evaluate for bacteria and parasites. These studies will take 48-72 hours to result. You will be notified of any abnormal results. Please follow-up with your Primary Care Provider in the next few days for recheck of your symptoms. Return to the emergency department if your symptoms persist despite treatment plan outlined above or if the following symptoms occur: Persistent fevers greater than 101, severe chills or feeling ill, worsening abdominal or back pain , persistent nausea/vomiting and unable to keep down fluids, large amounts of blood in your urine, inability to urinate for more than 8 hours, severe dizziness or passing out, or any other concerns. Work Instructions Return To Work: 2 days (Katerin Tran CRNP) Problem Qualifiers
[2017-10-06 14:32] LABS: BASO % 0.2 %; BASO ABS # 0.02 K/uL (0-0.2); EOS % 0.5 %; EOS ABS # 0.05 K/uL (0-0.5); HEMATOCRIT 36.3 % (37-47); IG# 0.03 K/uL (0.00-0.02); LYMPH % 15.3 %; LYMPH ABS # 1.57 K/uL (1.2-3.4); MEAN CELL VOLUME 85.8 fL (80-100); MEAN CORPUSCULAR HEMOGLOBIN 30.7 pg (25-34); MEAN CORPUSCULAR HGB CONC 35.8 g/dl (32-36); MEAN PLATELET VOLUME 11.7 fL (7.4-10.4); MONO % 11.6 %; MONO ABS # 1.19 K/uL (0.11-0.59); NEUT % 72.1 %; NEUT ABS # 7.43 K/uL (1.4-6.5); PLATELET COUNT 183 K/uL (130-400); RED CELL DISTRIBUTION WIDTH CV 12.7 % (11.5-14.5); RED CELL DISTRIBUTION WIDTH SD 40.3 fL (36.4-46.3); WHITE BLOOD COUNT 10.29 K/uL (4.8-10.8)
[2017-10-06 14:43] LABS: INR 1.1 (0.9-1.1); PTT PATIENT 33.4 SECONDS (21.0-31.0)
[2017-10-06 14:53] LABS: ALBUMIN 2.8 gm/dl (3.4-5.0); CALCIUM 8.7 mg/dl (8.5-10.1); CREATININE 0.99 mg/dl (0.60-1.20); POTASSIUM 3.9 mmol/L (3.5-5.1)
[2017-10-06 14:56] LABS: TOTAL PROTEIN 7.3 gm/dl (6.4-8.2)
--- NOTE | 2017-10-06 15:58 | DIAGNOSTIC IMAGING REPORT ---
CT SCAN OF THE ABDOMEN AND PELVIS WITHOUT IV CONTRAST CLINICAL HISTORY: Right flank pain. Fever. Constipation. COMPARISON STUDY: Abdominal CT dated 03/08/2016. TECHNIQUE: CT scan of the abdomen and pelvis is performed from the lung bases to the proximal femora. Images are reviewed in the axial, sagittal, and coronal planes. IV contrast was not administered for this examination. A dose lowering technique was utilized adhering to the principles of ALARA. CT DOSE: 581.82 mGy.cm FINDINGS: Lung bases: The heart is normal in size and without pericardial effusion. The lung bases are clear noting dependent atelectasis. Liver: The unenhanced liver is enlarged, measuring 24 cm in length. The liver demonstrates diffusely diminished attenuation consistent with hepatic steatosis. Fatty sparing is noted adjacent to gallbladder fossa. There is no intrahepatic biliary ductal dilatation. Gallbladder: Unremarkable. Spleen: Normal in size and attenuation. Pancreas: Unremarkable. Adrenal glands: Unremarkable. Kidneys: The unenhanced kidneys are normal in size. The right kidney appears edematous and there is significant right-sided perinephric stranding as was trace perinephric fluid. There is minimal right-sided hydronephrosis. The right ureter is normal in caliber, and no ureteral stone is identified. There are at least 3 nonobstructing right renal calculi measuring up to 8 mm. A 6 cm nonobstructing calculus is noted in the left kidney. There is no left-sided hydronephrosis. An 8 mm exophytic cyst is noted on the left. Abdominal vasculature: The abdominal aorta is normal in course and caliber noting mild to moderate atherosclerotic calcification. Bowel: The small bowel and colon are normal in course and caliber. The appendix is well-visualized and normal. Peritoneum: There is no intraperitoneal free air or abdominal ascites. Lymphadenopathy: None. Pelvic viscera: The bladder is normal as visualized. A calcified fibroid is noted in the uterine fundus. No adnexal lesion is seen. Skeletal structures: No lytic or blastic lesions are seen. IMPRESSION: 1. The right kidney appears edematous and there is significant right-sided perinephric stranding as well as trace perinephric fluid. 2. There is minimal right-sided hydronephrosis. The right ureter is normal in caliber and no ureteral stone is seen. These findings may represent the sequelae of a recently passed kidney stone. Pyelonephritis could also have this appearance. Correlation with clinical findings and urinalysis will be required. 3. Nonobstructing calculi are seen in both kidneys. 4. Hepatomegaly and severe hepatic steatosis. 5. A calcified fibroid is noted. 6. Additional findings as above. Electronically signed by: Hosea Blair M.D. 10/06/2017 3:57 PM Dictated Date/Time: 10/06/2017 3:48 PM
--- NOTE | 2017-10-06 16:25 | DIAGNOSTIC IMAGING REPORT ---
TWO VIEW CHEST CLINICAL HISTORY: Cough. FINDINGS: PA and lateral chest radiographs are obtained. No prior studies are available for comparison at the time of dictation. The cardiomediastinal silhouette is unremarkable. There is minimal bibasilar atelectasis. The lungs and pleural spaces are otherwise clear. There is no pneumothorax. The skeletal structures are osteopenic. The bony thorax appears intact. IMPRESSION: No active disease in the chest. Electronically signed by: Hosea Blair M.D. 10/06/2017 4:24 PM Dictated Date/Time: 10/06/2017 4:24 PM
[2017-10-06] MEDS ORDERED: CEFTRIAXONE SOD INJ 1 GM ADDVIAL IV STA (16:39)
[2017-10-06] MEDS ORDERED: CIPROFLOXACIN 500 MG TAB PO STA (17:47)
[2017-10-06] MEDS ORDERED: CIPR-304 PO (17:50)
[2017-10-06] MEDS ORDERED: FLUC150T PO (18:05)
[2017-10-06 18:24] VITALS: BP 122/79; PULSE 97; O2SAT 98
--- NOTE | 2017-10-08 14:46 | Pharmacy Progress Note ---
ED Pharmacist Culture FollowUp Date of Service: Oct 08, 2017. Called patient regarding urine culture, resistant to ciprofloxacin ( prescription received at visit). Discussed change to new antibiotic and stopping cipro, patient repeated back. She also asked if there was anything else she needed to do, was still feeling bad. Let her know she could be reevaluated if worsening symptoms, fever etc. per Katerin Tran PA-C discharge instructions. Prescription for Cefdinir 300 mg BID x 10 days called to [facility] at the patient's request. Case discussed with Dr. Tinoco, who is the prescribing provider.
== END 2017-10-06 18:25 | disposition home or self-care (01) ==
LOC: C.EDB 12:58
DX: N10 Acute pyelonephritis (principal); E87.1 Hypo-osmolality and hyponatremia; E11.65 Type 2 diabetes mellitus with hyperglycemia; R00.0 Tachycardia, unspecified; M79.1 Myalgia; R51 Headache; R05 Cough; R19.7 Diarrhea, unspecified; I10 Essential (primary) hypertension; Z79.84 Long term (current) use of oral hypoglycemic drugs; Z79.899 Other long term (current) drug therapy; Z88.8 Allergy status to other drugs, medicaments and biological substances